=== PATIENT | female | born 1970 | race Caucasian/White ===

== ENCOUNTER 2021-02-19 19:19 | Emergency (ER) | payer OTHER ==
[2021-02-19 20:05] LABS: BASOPHIL 0.7 % (0-2); EOSINOPHIL 4.3 % (0-5); HCT 35.7 % (37.0-47.0); HGB 11.8 g/dl (12.5-16.0); LYMPHOCYTE 47.3 % (15-48); MCH 36.1 pg (25.0-31.0); MCHC 33.1 g/dL (32.0-36.0); MCV 109.2 fL (78.0-100.0); MONOCYTE 5.3 % (0-12); MPV 9.9 fL (6.0-9.5); NEUTROPHIL 38.4 % (41-80); NRBC 0; PLT 195 K/uL (150-400); RBC 3.27 M/uL (4.20-5.40); RDW 13.4 % (11.5-14.0)
[2021-02-19 20:25] LABS: ALBUMIN 3.2 g/dL (3.4-5.0); BILIRUBIN - TOTAL 0.1 mg/dL (0.2-1.0); BUN/CREAT RATIO (CALC) 26.9 RATIO; CREATININE 0.67 mg/dL (0.51-0.95); GLOBULIN (CALCULATION) 3.7 g/dL; POTASSIUM 3.3 mmol/L (3.5-5.1); TOTAL PROTEIN 6.9 g/dL (6.4-8.2)
[2021-02-19 21:21] LABS: PROTHROMBIN TIME 12.5 SECONDS (11.4-13.6); PTT 24.8 SECONDS (22.2-34.7)
== END 2021-02-19 22:00 | disposition other institution (70) ==
LOC: FER 19:19
PROVIDERS: Nurse Practitioner Family
DX: S12.100A Unspecified displaced fracture of second cervical vertebra, initial encounter for closed fracture (principal); S12.200A Unspecified displaced fracture of third cervical vertebra, initial encounter for closed fracture; S80.211A Abrasion, right knee, initial encounter; F10.129 Alcohol abuse with intoxication, unspecified; R51.9 Headache, unspecified; F17.290 Nicotine dependence, other tobacco product, uncomplicated; E11.9 Type 2 diabetes mellitus without complications; Z96.651 Presence of right artificial knee joint; Z23 Encounter for immunization; Z88.5 Allergy status to narcotic agent; V49.40XA Driver injured in collision with unspecified motor vehicles in traffic accident, initial encounter; Y92.410 Unspecified street and highway as the place of occurrence of the external cause
CPT/HCPCS: 36415; 70450; 72125; 80053; 85025; 85610; 85730; 90471; 90715; G0480; J7030